=== PATIENT | male | born 1960 | race Caucasian/White ===

== ENCOUNTER 2017-02-17 17:09 | Emergency (ER) | payer OTHER ==
[~2017-02-17] VITALS: Ht 170.2 cm; Wt 65.8 kg
[~2017-02-17 17:09] MED LIST: BUPRENORPHIN-N1 EACH SL; NORCO 5-325 TA1 EACH PO; PENICILLIN V P500 MG PO; PERCOCET 5-3251 EACH PO; PROTONIX40 MG PO
[2017-02-17] MEDS ORDERED: IBUPROFEN600 MG PO (18:00)
[2017-02-17] MEDS ORDERED: ZITHROMAX250 MG PO (18:00)
== END 2017-02-17 18:16 | disposition home or self-care (01) ==
LOC: ED 17:09
DX: J18.9 Pneumonia, unspecified organism (principal); F17.200 Nicotine dependence, unspecified, uncomplicated; Z79.899 Other long term (current) drug therapy
CPT/HCPCS: 99283

== ENCOUNTER 2017-09-03 05:15 | Emergency (ER) | payer OTHER ==
[~2017-09-03] VITALS: Ht 170.2 cm; Wt 65.8 kg
[~2017-09-03 05:15] MED LIST changes: +IBUPROFEN600 MG PO; +ZITHROMAX250 MG PO
== END 2017-09-03 05:52 | disposition home or self-care (01) ==
LOC: ED 05:15
DX: S46.911A Strain of unspecified muscle, fascia and tendon at shoulder and upper arm level, right arm, initial encounter (principal); F17.200 Nicotine dependence, unspecified, uncomplicated; Z98.890 Other specified postprocedural states; X50.0XXA Overexertion from strenuous movement or load, initial encounter
CPT/HCPCS: 99282

== ENCOUNTER 2018-02-01 06:45 | Emergency (ER) | payer OTHER ==
[~2018-02-01] VITALS: Ht 170.2 cm; Wt 65.8 kg
[2018-02-01] MEDS ORDERED: IBUPROFEN600 MG PO (07:32)
== END 2018-02-01 08:28 | disposition home or self-care (01) ==
LOC: ED 06:45
DX: S46.912A Strain of unspecified muscle, fascia and tendon at shoulder and upper arm level, left arm, initial encounter (principal); F17.200 Nicotine dependence, unspecified, uncomplicated; X50.9XXA Other and unspecified overexertion or strenuous movements or postures, initial encounter; Y99.0 Civilian activity done for income or pay
CPT/HCPCS: 73030; 99283

== ENCOUNTER 2019-09-19 04:48 | Emergency (ER) | payer OTHER ==
[~2019-09-19] VITALS: Ht 170.2 cm; Wt 65.8 kg
--- OUTSIDE RECORDS SUMMARY | 2019-09-19 04:52 | XMS ---
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 [facility] VISIT COUNT (12 MO.) 2 [facility] TOTAL 2 NOTE: Visits indicate total known visits. ED/UCC VISIT TRACKING (12 MO.) 09/19/2019 04:49 [facility] [place] TYPE: Emergency COMPLAINT: - COUGH/SORE THROAT 03/05/2019 10:49 [facility] [place] TYPE: Emergency COMPLAINT: - DENTAL PROBLEM DIAGNOSES: - Other specified disorders of teeth and supporting structures INPATIENT VISIT TRACKING (12 MO.) No inpatient visits to display in this time frame [email or web address]
[2019-09-19] MEDS ORDERED: PENICILLIN V P500 MG PO (05:33)
[2019-09-19] MEDS ORDERED: ZOFRAN4 MG PO (05:33)
== END 2019-09-19 05:45 | disposition home or self-care (01) ==
LOC: ED 04:48
DX: J06.9 Acute upper respiratory infection, unspecified (principal); K04.7 Periapical abscess without sinus; F17.200 Nicotine dependence, unspecified, uncomplicated
CPT/HCPCS: 99283

== ENCOUNTER 2019-11-25 04:17 | Emergency (ER) | payer OTHER ==
[~2019-11-25] VITALS: Ht 170.2 cm; Wt 65.8 kg
[~2019-11-25 04:17] MED LIST changes: +ZOFRAN4 MG PO
--- OUTSIDE RECORDS SUMMARY | 2019-11-25 04:20 | XMS ---
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 Judi has no Care Guidelines for this patient. Care History Medical/Surgical 09/19/2019 [facility] - NO PCP LETTER SENT TO PATIENT E.D. VISIT COUNT (12 [address] 3 [facility] Carlos A TOTAL 3 NOTE: Visits indicate total known visits. ED/C VISIT TRACKING (12 MO.) [facility] COMPLAINT: - DENTAL PAIN 09/19/2019 04:49 [facility] [place] TYPE: Emergency COMPLAINT: - COUGH/SORE THROAT DIAGNOSES: - Nicotine dependence, unspecified, uncomplicated - Cough - Acute upper respiratory infection, unspecified - Periapical abscess without sinus 03/05/2019 10:49 [facility] [place] TYPE: Emergency COMPLAINT: - DENTAL PROBLEM DIAGNOSES: - Other specified disorders of teeth and supporting structures INPATIENT VISIT TRACKING (12 MO.) No inpatient visits to display in this time frame [email or web address]
[2019-11-25] MEDS ORDERED: AMOXICILLIN500 MG PO (04:46)
== END 2019-11-25 04:54 | disposition home or self-care (01) ==
LOC: ED 04:17
DX: K02.9 Dental caries, unspecified (principal); F17.200 Nicotine dependence, unspecified, uncomplicated
CPT/HCPCS: 99282